=== PATIENT | female | born 1985 | race Two or more races ===

== ENCOUNTER 2024-09-18 13:31 | Emergency (ER) | payer MEDICAID, OTHER ==
[~2024-09-18] VITALS: Ht 157.5 cm; Wt 88.8 kg
[2024-09-18 15:17] VITALS: BP 131/78; PULSE 78; RESP 16; TEMP 99.1; O2SAT 98
[2024-09-18] MEDS: cefTRIAXone SOD 1,000 MG VL IM ONE (15:29)
[2024-09-18] MEDS: ACETAMINOPHEN 500 MG TAB PO ONE (15:29)
--- NOTE | 2024-09-18 15:32 | ED.PDOC ---
Eye-HPI HPI Comments A 38 YEAR OLD FEMALE PRESENTS TO THE ED WITH COMPLAINT OF COUGH. PATIENT REPORTS THAT SHE IS CURRENTLY 30 WEEKS AND HAS BEEN EXPERIENCING A COUGH WITH ASSOCIATED SORE THROAT, AND LEFT EAR PAIN FOR THE PAST WEEK. PT DENIES PROBLEMS. PATIENT DENIES FEVER, CHILLS, SHORTNESS OF BREATH, CHEST PAIN, ABDOMINAL PAIN, NAUSEA, VOMITING, HEADACHE, OR OTHER COMPLAINTS. NO OTHER SYMPTOMS OR MODIFYING FACTORS AT THIS TIME. Chief Complaint: Flu like Time Seen by MD: 15:27 Reviewed Notes: Nurses Notes, Medications, Allergies Allergies: Coded Allergies: No Known Drug Allergy (Verified Allergy, Unknown, 09/18/24) Information Source: Patient Mode of Arrival: Ambulatory Timing: Weeks Duration: Since onset, Days Prehospital treatment: None Lids: Normal Conjunctiva: Normal Cornea: Normal Pupils: Normal EOM: Normal Fundus: Normal Anterior chamber: Normal Mouth Location: Pharynx Mouth: Normal ENT Ear Exam: Red, Bulging, Dull Nose: Normal Sinuses: Normal Oropharynx: Red Onset: Spontaneous Throat Exposed to: None History of: None Modifying factors: Nothing Associated signs and symptoms: Sore Throat, Ear Pain Past Medical History PAST MEDICAL HISTORY: Denies Surgical History: Denies all surgeries [employer] History: No Pertinent [employer]OM[employer]IVE [employer]ER History Family History Family History: Reviewed,noncontributory to illness Social History Smoker: Non-Smoker Alcohol: Denies ETOH Use Drugs: Denies Drug Use Lives In: Home Constitutional: denies: chills, diaphoresis, fatigue, fever, malaise, sweats, weakness, others EENTM: reports: ear pain (LEFT), ear ringing, nose congestion, throat pain, throat swelling; denies: blurred vision, double vision, ear bleeding, ear discharge, ear drainage, eye pain, eye redness, hearing loss, mouth pain, mouth swelling, nasal discharge, nose bleeding, nose pain, photophobia, tearing, voice changes, others Respiratory: reports: cough; denies: hemoptysis, orthopnea, SOB at rest, shortness of breath, SOB with excertion, stridor, wheezing, others Cardiovascular: denies: chest pain, dizzy spells, diaphoresis, Dyspnea on exertion, edema, irregular heart beat, left arm pain, lightheadedness, palpitations, PND, syncope, others Gastrointestinal: denies: abdomen distended, abdominal pain, blood streaked bowels, constipated, diarrhea, dysphagia, difficulty swallowing, hematemesis, melena, nausea, poor appetite, poor fluid intake, rectal bleeding, rectal pain, vomiting, others Genitourinary: reports: ; denies: abnormal vagina bleeding, burning, dyspareunia, dysuria, flank pain, frequency, hematuria, incontinence, pain, vagina discharge, urgency, others Neurological: denies: dizziness, fainting, headache, left sided numbness, left sided weakness, numbness, paresthesia, pre-existing deficit, right sided numbness, right sided weakness, seizure, speech problems, tingling, tremors, weakness, others Musculoskeletal: denies: back pain, gout, joint pain, joint swelling, muscle pain, muscle stiffness, neck pain, others Integumetry: denies: bruises, change in color, change in hair/nails, dryness, laceration, lesions, lumps, rash, wounds, others Allergic/Immunocompromised: denies: Difficulty Healing, Frequent Infections, Hives, Itching, others Hematologic/Lymphatic: denies: anemia, blood clots, easy bleeding, easy bruising, swollen glands, others Endocrine: denies: excessive hunger, excessive sweating, excessive thirst, excessive urination, flushing, intolerance to cold, intolerance to heat, unexplained weight gain, unexplained weight loss, others Psychiatric: denies: anxiety, bipolar disorder, depression, hopeless, panic disorder, schizophrenia, sleepless, suicidal, others All Other Systems: Reviewed and Negative Physical Exam General Appearance: No Apparent Distress, Normal HEENT: PERRL/EOMI, Pharyngeal Erythema (TONSILLAR SWELLING, NO EXUDATES. ), TM Abnormal (L) (ERYTHEMA AND DULL WITH EFFUSION OF LEFT TM. ) Neck: Full Range of Motion, Non-Tender, Normal, Normal Inspection Respiratory: Chest Non-Tender, Expiration, No Accessory Muscle Use, No Respiratory Distress, Rhonchi Cardiovascular: No Edema, No JVD, No Murmur, No Gallop, Normal Peripheral Pulses, Regular Rate/Rhythm Breast Exam: Deferred Gastrointestinal: No Organomegaly, Non Tender, No Pulsatile Mass, Normal Bowel Sounds, Soft Genitalia: Deferred Pelvic: Deferred Rectal: Deferred Extremities: No calf tenderness, Normal capillary refill, Normal inspection, Normal range of motion, Non-tender, No pedal edema Musculoskeletal : Apperance: Normal Neurologic: Alert, fish inspector II-XII nml as Tested, No Motor Deficits, Normal Affect, Normal Mood, No Sensory Deficits Cerebellar Function: Normal Reflexes: Normal Skin: Dry, Normal Color, Warm Peripheral Pulses: 2+ carotid (R), 2+ carotid (L) Lymphatic: No Adenopathy Was a procedure done? Was a procedure done?: No EENT DIFF Eye: N/A Ear: Otitis Media, Pharyngitis Other Differential Diagnosis ACUTE BRONCHITIS X-Ray, Labs, Meds, VS Vital Signs Date Time Temp Pulse Resp B/P (MAP) Pulse Ox O2 Delivery O2 Flow Rate FiO2 09/18/24 15:17 78 16 98 Room Air 09/18/24 15:17 99.1 78 16 131/78 (95) 98 99.1 09/18/24 14:01 99.1 78 16 131/78 (95) 98 Current Medications Medications (Trade) Dose Ordered Sig/Joanne Route Start Time Stop Time Status Last Admin Ceftriaxone Sodium (Rocephin) 1,000 mg ONCE ONCE IM 09/18/24 15:30 09/18/24 15:31 DC 09/18/24 15:29 Acetaminophen (Tylenol Tablet) 1,000 mg ONCE ONCE PO 09/18/24 15:30 09/18/24 15:31 DC 09/18/24 15:29 X-Ray, Labs, Meds, VS Comment TREATMENT: ROCEPHIN 1G, TYLENOL 1G Time of 1ST Reevaluation: 16:10 Reevaluation 1ST: Improved Patient Education/Counseling: Diagnosis, Treatment, Need For Follow Up Family Education/Counseling: Diagnosis, Treatment, No Family Present Medical Screening: No EMC Exist At This Time Departure 1 Departure Time of Disposition: 16:20 Impression: Primary Impression: Acute otitis media with effusion of left ear Additional Impressions: Acute tonsillitis Qualified Codes: J03.90 - Acute tonsillitis, unspecified Acute bronchitis Qualified Codes: J20.9 - Acute bronchitis, unspecified Disposition: 01 HOME / SELF CARE / HOMELESS Condition: Stable Additional Instructions: F/U PCP IN 2 DAYS RECHECK. IF CONDITION BECOME WORSE, RETURN TO ED [facility]. e-Prescriptions Promethazine-Dm (Promethazine Dm 6.25-15 mg/5Ml) 1 Patrica Patrica 5 ML PO TID, #150 ML Prov: JOSE CRUZ MOULTON 09/18/24 Acetaminophen (Tylenol Extra Strength Fo) 500 Mg Tab 500 MG PO TID, #30 TAB Prov: JOSE CRUZ MOULTON 09/18/24 Amoxicillin Trihydrate (Amoxicillin) 875 Mg Tab 1 TAB PO BID, #20 TAB Prov: JOSE CRUZ MOULTON 09/18/24 Discharged With: Self Critical Care Note Critical Care Time?: No Stability Stability form required: No Heart Score Heart Score: Heart Score Response (Comments) Value History N/A 0 EKG N/A 0 Age N/A 0 Risk Factors N/A 0 Troponin N/A 0 Total 0 I personally scribed for JOSE CRUZ MOULTON ([email or web address]) on 09/18/24 at 15:32. Electronically submitted by Royer [place] ([email or web address]). I personally scribed for JOSE CRUZ MOULTON ([email or web address]) on 09/18/24 at 15:33. Electronically submitted by Royer [place] ([email or web address]). JOSE CRUZ MOULTON Sep 18, 2024 15:32
[2024-09-18] MEDS ORDERED: ACET-1304 PO (15:54)
[2024-09-18] MEDS ORDERED: PROM1SOL4 PO (15:54)
[2024-09-18] MEDS ORDERED: AMOX875T3 PO (15:54)
== END 2024-09-18 15:59 | disposition home or self-care (01) ==
LOC: ER 13:31
DX: O99.513 Diseases of the respiratory system complicating pregnancy, third trimester (principal); O99.891 Other specified diseases and conditions complicating pregnancy; J03.90 Acute tonsillitis, unspecified; H65.192 Other acute nonsuppurative otitis media, left ear; J20.9 Acute bronchitis, unspecified; Z3A.30 30 weeks gestation of pregnancy
CPT/HCPCS: 96372; 99283; J0696